=== PATIENT | male | born 1965 | race Two or more races ===

== ENCOUNTER 2019-02-24 07:18 | Emergency (ER) | payer OTHER ==
[~2019-02-24] VITALS: Ht 165.1 cm; Wt 72.6 kg
--- NOTE | 2019-02-24 07:25 | NUR ---
ED Nurse Note: pt not in the room. Per pt's coworker, pt went to speak to his boss outside.
[2019-02-24] MEDS ORDERED: LISINOPRIL5 MG ORAL (07:38)
[2019-02-24 07:48] VITALS: BP 172/100
--- NOTE | 2019-02-24 07:49 | NUR ---
ED Nurse Note: Patient is who brought another patient to ER due to behavior complaint. Pt injured his 2 fingers in Rt hands while trying to put behavior complaint pt in gurney. pt aao x4 and skin clean and intact.
--- NOTE | 2019-02-24 07:58 | NUR ---
ED Nurse Note: NICOLE speaking to pt about the x-ray results.
--- NOTE | 2019-02-24 08:02 | Emergency Room Report ---
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 While he was handcuffing the person in custody, he believes he crushed his pinky finger during the process possibly on the ground. However , he states he isn't quite sure exactly how it was injured. He has pain with movement and palpation of the proximal pinky finger. He has no other injuries or complaints. Allergies: Coded Allergies: No Known Allergies (Unverified , 02/24/19) Patient History Past Medical History: see triage record, HTN Social History: Denies: smoking, alcohol use, drug use Reviewed Nursing Documentation: PMH: Agreed; PSxH: Agreed Nursing Documentation-PMH Past Medical History: No History, Except For Hx Hypertension: Yes Review of Systems All Other Systems: negative except mentioned in HPI Physical Exam Vital Signs Date Time Temp Pulse Resp B/P (MAP) Pulse Ox O2 Delivery O2 Flow Rate FiO2 02/24/19 07:34 98.4 84 16 172/100 96 Room Air Sp02 EP Interpretation: reviewed, normal General Appearance: no apparent distress, alert, GCS 15, non-toxic Head: normocephalic, atraumatic Eyes: bilateral eye normal inspection ENT: hearing grossly normal, normal pharynx, no angioedema, normal voice Neck: normal inspection Respiratory: no respiratory distress, no retraction, no accessory muscle use, speaking full sentences Rectal: deferred Musculoskeletal: back normal, gait/station normal, normal range of motion, tender Neurologic: alert, oriented x3, responsive, motor strength/tone normal, sensory intact, speech normal Psychiatric: judgement/insight normal, memory normal, mood/affect normal, no suicidal/homicidal ideation Skin: no rash, warm/dry, well hydrated Medical Decision Making Diagnostic Impression: Primary Impression: Metacarpal bone fracture ER Course This patient has an avulsion fracture of the distal fifth phalanx. This is in the region of an old healed fracture site. However, the patient is exquisitely tender at this location. I suspect there is an acute fracture here. The patient was placed in an ulnar gutter splint and instructed to follow-up with orthopedics. She is given return precautions and follow-up instructions. Other X-Ray Diagnostic Results Other X-Ray Diagnostic Results : X-Ray ordered: R. hand # of Views/Limited Vs Complete: Complete Indication: Pain EP Interpretation: Yes Interpretation: other - Small fx at the distal metacarpal medially. Impression: Other - See above Electronically Signed by: Ursula Baker DO Last Vital Signs Date Time Temp Pulse Resp B/P (MAP) Pulse Ox O2 Delivery O2 Flow Rate FiO2 02/24/19 07:34 98.4 84 16 172/100 96 Room Air Status: improved Disposition: HOME, SELF-CARE Condition: Improved Ursula Baker DO Feb 24, 2019 08:02
--- NOTE | 2019-02-24 08:41 | Diagnostic Imaging Report ---
. Indication: Trauma Technique: XRAY Fingers 2-3v R Comparison: None FINDINGS/IMPRESSION: Bony mineralization within normal limits. There is slight irregularity of the distal shaft of the fifth metacarpal which may be related to remote/healed fracture. There is no evidence of acute fracture. Alignment and joint spaces are maintained. There is rounded metallic density structure which projects over the second metacarpal on 2 views suggesting retained foreign body, question prior projectile injury. Correlation with physical exam and history recommended.
--- NOTE | 2019-02-24 08:53 | Diagnostic Imaging Report ---
Indication: Trauma Technique: XRAY Hand Complete R Comparison: None FINDINGS/IMPRESSION: Bone mineralization within normal limits. There is irregularity of the distal shaft/neck of the fifth metacarpal which is likely related to chronic fracture. Additionally there is a questionable subtle irregularity involving portions of the head of the fifth metacarpal which is seen only on one of the views and may potentially be related to chronic posttraumatic changes however the possibility of an acute subtle fracture however is not excluded and correlation for tenderness in this region is recommended. No additional acute fracture is suggested. Alignment and joint spaces appear maintained. Rounded metallic density structure projects over the second metacarpal suggesting retained foreign body, question prior projectile injury.
[2019-02-24 09:16] VITALS: BP 166/101
--- NOTE | 2019-02-24 09:18 | NUR ---
ER DISCHARGE NOTE: Patient is cleared to be discharged per ERMD and workers compensation provided, pt is aox4, on room air, with stable vital signs. pt has high blood pressure but per pt, that is his baseline. pt was given dc instructions, pt was able to verbalize understanding, pt id band removed. pt is able to ambulate with steady gait. pt took all belongings.
== END 2019-02-24 09:19 | disposition home or self-care (01) ==
LOC: EMR 07:44
DX: S62.326A Displaced fracture of shaft of fifth metacarpal bone, right hand, initial encounter for closed fracture (principal); X58.XXXA Exposure to other specified factors, initial encounter; Y92.89 Other specified places as the place of occurrence of the external cause; I10 Essential (primary) hypertension
CPT/HCPCS: 29125; 99283